=== PATIENT | male | born 2000 | race African-American/Black ===

== ENCOUNTER 2020-04-14 22:01 | Emergency (ER) | payer SELFPAY ==
[2020-04-14 23:00] LABS: ABSOLUTE EOSINOPHILS # (AUTO) 0.3 10^3/uL (0.0-0.6); ABSOLUTE LYMPHOCYTES (AUTO) 1.5 10^3/uL (0.5-4.7); ABSOLUTE MONOCYTES (AUTO) 1.1 10^3/uL (0.1-1.4); ABSOLUTE NEUT (AUTO) 9.6 10^3/uL (1.7-8.2); BASOPHILS % (AUTO) 0.3 % (0-2); EOSINOPHILS % (AUTO) 2.7 % (0-6); HEMATOCRIT 49.7 % (37.9-51.0); HEMOGLOBIN 17.4 g/dL (13.5-17.0); LYMPHOCYTES % (AUTO) 11.7 % (13-45); MEAN CORPUSCULAR HEMOGLOBIN 32.2 pg (27.0-33.4); MEAN CORPUSCULAR HGB CONC 35.1 g/dL (32.0-36.0); MEAN CORPUSCULAR VOLUME 92 fl (80-97); MONOCYTES % (AUTO) 8.7 % (3-13); PLATELET COUNT 223 10^3/uL (150-450); RED BLOOD COUNT 5.42 10^6/uL (4.35-5.55); RED CELL DISTRIBUTION WIDTH 14.2 % (11.5-14.0); SEGMENTED NEUTROPHILS % (AUTO) 76.6 % (42-78); TOTAL CELLS COUNTED % (AUTO) 100 %; WHITE BLOOD COUNT 12.5 10^3/uL (4.0-10.5)
[2020-04-14] MEDS ORDERED: ACETAMINOPHEN 325 MG TABLET PO ONE (23:02)
--- NOTE | 2020-04-14 23:17 | RADIOLOGY REPORT (SQ) ---
EXAM DESCRIPTION: Chest radiograph one view CLINICAL HISTORY: dyspnea COMPARISON: None FINDINGS: Cardiac silhouette is within normal limits. Focal vague opacity at the right cardiophrenic angle compatible with an infectious process. Other etiologies not excluded. Recommend follow-up. There is no acute osseous process visualized. IMPRESSION: Focal vague opacity at the right cardiophrenic angle compatible with an infectious process. Other etiologies not excluded. Recommend follow-up.
[2020-04-14] MEDS ORDERED: NORMAL SALINE 1000 ML 1,000 ML IV ONE (23:24)
[2020-04-14] MEDS ORDERED: IBUPROFEN 800 MG TABLET PO ONE (23:24)
[2020-04-14] MEDS ORDERED: IPRATROPIUM/ALBUTEROL 0.5-2.5 MG/3 ML AMPUL NEB ONE (23:24)
[2020-04-14] MEDS ORDERED: AZITHROMYCIN INJ 500 MG VIAL IV ONE (23:25)
[2020-04-14] MEDS ORDERED: CEFTRIAXONE 1 GM/D5W RTU 1 GM/50 ML RTUPB IV ONE (23:25)
--- NOTE | 2020-04-14 23:28 | ER Document Report ---
ED General - General Chief Complaint: Weakness Stated Complaint: FEVER/COUGH Time Seen by Provider: 04/14/20 23:03 Notes: Patient is a 19-year-old male that comes emergency department for chief complaint of fever, chills, body aches, and worsening cough for the past 3 days. He states he only has a sore throat with cough, he denies vomiting, he denies particular headache, abdominal pain, chest pain, or any other complaints. He denies any recent travel or obvious sick contacts. He denies history of illnesses, hospitalizations, or diagnosed medical history. He denies any daily medications. He smokes, denies recreational drugs, drinks alcohol occasionally. - Related Data Allergies/Adverse Reactions: No Known Allergies Allergy (Unverified 04/15/20 02:03) Past Medical History - General Information source: Patient - Social History Smoking Status: Current Every Day Smoker Chew tobacco use (# tins/day): No Frequency of alcohol use: None Drug Abuse: None Lives with: Family Family History: Reviewed & Not Pertinent Patient has homicidal ideation: No - Medical History Medical History: Negative Surgical Hx: Negative - Immunizations Immunizations up to date: Yes Hx Diphtheria, Pertussis, Tetanus Vaccination: Yes Review of Systems - Review of Systems Constitutional: See HPI EENT: No symptoms reported Cardiovascular: No symptoms reported Respiratory: See HPI Gastrointestinal: No symptoms reported Genitourinary: No symptoms reported Male Genitourinary: No symptoms reported Musculoskeletal: No symptoms reported Skin: No symptoms reported Hematologic/Lymphatic: No symptoms reported Neurological/Psychological: No symptoms reported Physical Exam - Vital signs Vitals: Temp 103.1 F H 04/14/20 22:01 - Notes Notes: GENERAL: Alert but quiet and somewhat ill-appearing HEAD: Normocephalic, atraumatic. EYES: Pupils equal, round, and reactive to light. Extraocular movements intact. ENT: Oral mucosa moist, tongue midline. Oropharynx with mild erythema but no noted exudates or other concerning findings. Airway patent. Nares patent, sinuses non-tender, ear canals unremarkable, TM's intact. NECK: Full range of motion. Supple. Trachea midline. No overt lymphadenopathy. LUNGS: Scattered rhonchi and inspiratory/expiratory wheezes. Occasional congested cough. No labored breathing or tachypnea noted HEART: Tachycardia, normal rhythm, no murmur ABDOMEN: Soft, non-tender. Non-distended. EXTREMITIES: Moves all 4 extremities spontaneously. No edema, normal radial and dorsalis pedis pulses bilaterally. No cyanosis. BACK: no cervical, thoracic, lumbar midline tenderness. No saddle anesthesia, normal distal neurovascular exam. Moves all extremities in full range of motion. NEUROLOGICAL: Alert and oriented x3. Normal speech. Cranial nerves II through XII grossly intact. Strength 5/5 in all extremities. PSYCH: Normal affect, normal mood. SKIN: Flushed and warm Course - Re-evaluation Re-evalutation: Initially patient is somewhat ill in appearance, febrile, tachycardic, with scattered rhonchi and wheezes. Patient was given IV fluids, fever treatment, DuoNeb, and then nausea medication on request. After symptom management patient appeared significantly improved, states he feels much better. Lungs are clear on reevaluation. CBC shows mild leukocytosis of 12,000 with elevation of neutrophils but no bandemia. Chemistry unremarkable. Blood cultures pending. Chest x-ray indicates probable infectious process in the right mid to lower lung. Based on patient's clinical presentation I do suspect pneumonia. Patient was started on antibiotics, afterwards patient was ambulated with pulse oxygen saturation measurement. Patient did well without any significant labored breathing or hypoxia. Patient will be treated at home with antibiotics, nausea medication, albuterol and spacer. Patient states he is very comfortable with this plan. Provided with work release. Discussed medical cessation. Discussed follow-up instructions and discussed return precautions at length. Patient states understanding and agreement. COVID testing was also performed because of patient's fever, cough, nausea, patient given details in regards to this as well. Stable and well-appearing at time of discharge. - Vital Signs Vital signs: Temp Pulse Resp BP Pulse Ox 102.3 F H 118 H 20 127/80 H 93 04/15/20 00:20 04/14/20 22:02 04/14/20 22:02 04/14/20 22:02 04/14/20 22:02 - Laboratory Result Diagrams: 04/14/20 22:30 04/15/20 00:03 Laboratory results interpreted by me: 04/14/20 04/14/20 04/15/20 22:30 23:23 00:03 WBC 12.5 H Hgb 17.4 H RDW 14.2 H Lymph % (Auto) 11.7 L Absolute Neuts (auto) 9.6 H Sodium 135.8 L Urine Urobilinogen 4.0 H Discharge - Discharge Clinical Impression: Cough Fever Qualifiers: Fever type: unspecified Qualified Code(s): R50.9 - Fever, unspecified Pneumonia Qualifiers: Pneumonia type: due to unspecified organism Laterality: right Lung location: l ower lobe of lung Qualified Code(s): J18.9 - Pneumonia, unspecified organism Condition: Stable Disposition: HOME, SELF-CARE Additional Instructions: Your evaluation indicates pneumonia. You are also being tested for the coronavirus as we discussed. Take the antibiotics as prescribed to completion, use the albuterol inhaler with the spacer. You can take 600 mg of ibuprofen and 1000 mg of Tylenol every 6 hours for your symptoms and fever. Drink plenty of fluids and rest. Take nausea medication if needed. Please follow coronavirus instructions listed below. Stop smoking. Follow-up with primary care. Come back if you worsen including difficulty breathing, uncontrolled vomiting, or any other concerning or worsening symptoms. As a person under investigation for COVID-19, the [place] Department of Health and Human Services (divison on public health) advises you to adhere to the following guidance until your test results are reported to you. If your test result is positive, you will receive additional information from your provider and your local health department at that time. Remain at home until you are cleared by the health provider or public health authorities. Keep a log of visitors to your home, notify any visitors to your home of your isolation status. If you plan to move to a new address or leave the [facility], notify the local [facility] department in your [facility]. Call your Doctor or seek care if you have an urgent medical need. Before seeking medical care, call him to get instructions from the provider before arriving at the medical office, clinic, or hospital. Notify them that you are being tested for the virus (COVID-19) so that arrangements can be made, as necessary, to prevent transmission to others in the healthcare setting. Next, notify the local health department in your [facility]. If a medical emergency arises and you need to call 911, inform the first responders that you are being tested for the virus that causes COVID-19. Next, notify the local health department in your county. Prescriptions: Promethazine HCl [Phenergan 25 mg Tablet] 25 mg PO Q6H PRN #15 tablet PRN Reason: Doxycycline Hyclate [Vibramycin 100 mg Tablet] 100 mg PO BID 7 Days #14 tablet Forms: Return to Work
[2020-04-15 00:55] LABS: APPEARANCE,URINE CLEAR; BILIRUBIN,URINE NEGATIVE (NEGATIVE); COLOR,URINE YELLOW; GLUCOSE, URINE NEGATIVE (NEGATIVE); KETONES,URINE NEGATIVE (NEGATIVE); LEUKOCYTE ESTERASE,URINE NEGATIVE (NEGATIVE); NITRITE,URINE NEGATIVE (NEGATIVE); PROTEIN,URINE NEGATIVE (NEGATIVE); URINE SPECIFIC GRAVITY 1.026
[2020-04-15 01:01] LABS: ALBUMIN 4.3 g/dL (3.5-5.0); ALKALINE PHOSPHATASE 83 U/L (38-126); ANION GAP 11 (5-19); ASPARTATE AMINO TRANSFERASE 27 U/L (17-59); BILIRUBIN,TOTAL 1.2 mg/dL (0.2-1.3); BLOOD UREA NITROGEN 16 mg/dL (7-20); CALCIUM 9.9 mg/dL (8.4-10.2); CARBON DIOXIDE 23 mmol/L (22-30); CHLORIDE 102 mmol/L (98-107); GLUCOSE 98 mg/dL (75-110); POTASSIUM 4.1 mmol/L (3.6-5.0); TOTAL PROTEIN 7.5 g/dL (6.3-8.2)
[2020-04-15] MEDS ORDERED: ONDANSETRON HCL INJ/PF 4 MG/2 ML SDV IV ONE (01:58)
[2020-04-15] MEDS ORDERED: ALBUTEROL SULFATE HFA (90 MCG/PUFF) 8 GM MDI (1 MDI/ER DISP) IH ONE (02:50)
[2020-04-15 02:58] VITALS: BP 124/70
== END 2020-04-15 03:25 | disposition home or self-care (01) ==
LOC: ER 22:01
DX: J18.9 Pneumonia, unspecified organism (principal); R50.9 Fever, unspecified; R05 Cough; R53.1 Weakness; F17.200 Nicotine dependence, unspecified, uncomplicated; Z20.828 Contact with and (suspected) exposure to other viral communicable diseases
CPT/HCPCS: 94640; 99283; 96375; 96365; 96367; 36415; 87040; 87070; 87880; 85025; 87635; 80053; 81001; 71045; J2405; J7030; J0456; J0696; J7620

== ENCOUNTER → 2020-10-24 | Outpatient (CLI) | payer MEDICAID ==
--- NOTE | 2020-10-24 12:45 | ER [facility] ASSESSMENT REPORT ---
Intake - In the Last 14 days Have you traveled outside [place]?: No Have you been in close contact with someone CONFIRMED: No Worked in Healthcare?: No - Symptoms Subjective Fever([place] feverish): Yes Chills: No Muscule Aches: No Runny Nose: No Sore Throat: No Cough (New or worsening chronic cough): No Shortness of breath: No Nausea or Vomiting: No Headache: No Abdominal Pain: Yes Diarrhea(3 or more loose stools in last 24 hours): No - Do you have any of the following Chronic lung disease: Asthma or emphysema or COPD: Yes Chronic Lung Disease Comment: asthma Cystic Fibrosis: No Diabetes: No High Blood Pressure: No Cardiovascular Disease: No Chronic Kidney Disease: No Chronic Liver Disease: No Chronic blood disorder like Sickle Cell Disease: No Weak immune system due to disease or medication: No Neurologic condition that limits movement: No Developmental delay - Moderate to Severe: No Recent (within past 2 weeks) or current : No Morbid Obesity (>100 pounds over ideal weight): No - Objective Temperature: 98.6 F Pulse Rate: 84 Respiratory Rate: 18 Blood Pressure: 130/70 O2 Sat by Pulse Oximetry: 94 Objective: Given above, testing performed: If Testing Performed: Test Specimen Type Sent to General - General Information source: Patient Notes: Patient presents to the [facility] for screening for the coronavirus. Patient has had fever and abdominal pain last week. Patient states that he is requiring a Covid test. - Related Data Allergies/Adverse Reactions: No Known Allergies Allergy (Unverified 04/15/20 02:03) Past Medical History - General Information source: Patient - Social History Family History: Reviewed & Not Pertinent Pulmonary Medical History: Reports: Hx Asthma Surgical Hx: Negative Physical Exam - Notes Notes: The patient was evaluated during the global Covid 19 pandemic, and that diagnosis was suspected/considered upon their initial presentation. Their evaluation, treatment and testing was consistent with current guidelines for patients who present with complaints or symptoms that may be related to Covid 19. Full physical exam could not be performed due to covid 19 isolation protocols. Constitutional: Nontoxic appearance, no acute distress Eyes: Nonicteric, extraocular movements intact, sclera clear Cardiovascular: Heart rate and rhythm regular, no JVD Respiratory: Scattered wheezing bilaterally, nonlabored breathing, no use of accessory muscles, no tachypnea Gastrointestinal: Abdomen not distended Muculoskeletal: Moves all extremities well Skin: Normal color Neuro: Awake alert oriented, normal speech Psych: Normal mood and affect Diagnostic Results Laboratory Results: Patient presents with upper respiratory symptoms worrisome for possible Covid 19. Patient does not have emergency worrying symptoms such as difficulty breathing, shortness of breath, chest pain, pressure, confusion or cyanosis. Patient appears suitable for discharge as vital signs are stable and patient is nontoxic in appearance. Good return precautions have been discussed with patient, patient verbalized understanding and is agreeable with discharge plan of care at this time. Patient Education/Counseling Counseling/Education: Patient was provided with discharge information including: As a person under investigation for Covid 19, the [facility] Health and Human Services, division of public health advises you to adhere to the following guidance until your test results are reported to you. If your test result is positive, you will receive additional information from your provider and your local health department at that time. Remain at home until you are cleared by the health provider or public health authorities. Keep a log of visitors to your home, notify any visitors to your home of your isolation status. If you plan to move to a new address or leave the county, notify the local health department in your County. Call your doctor or seek care if you have an urgent medical need. Before seeking medical care, call ahead to get instructions from the provider before arriving at the medical office clinic or hospital. Notify them that you are being tested for the virus that causes Covid 19 so that arrangements can be made, as necessary, to prevent transmission to others in the healthcare setting. Next, notify the local health department in your county. If a medical emergency arises and you need to call 911, inform the first responders that you are being tested for the virus that causes Covid 19. Next, notify the local health department in your county. [facility] Discharge - Discharge Clinical Impression: Encounter for screening laboratory testing for COVID-19 virus, Wheezing Condition: Stable Disposition: Home; Selfcare
[2020-10-24 13:17] VITALS: BP 130/70
== END ==
LOC: RDC 12:30
PROVIDERS: ATTEND Nurse Practitioner Family
DX: Z20.828 Contact with and (suspected) exposure to other viral communicable diseases (principal); R50.9 Fever, unspecified; R10.9 Unspecified abdominal pain; J45.909 Unspecified asthma, uncomplicated
CPT/HCPCS: 87635; 99201; 99211; C9803